=== PATIENT | male | born 1990 | race African-American/Black ===

== ENCOUNTER → 2017-02-26 | Outpatient (CLI) | payer OTHER ==
[~2017-02-26] MED LIST: ARIP5TA PO; ATIV1TAB10 PO; HYDRO50TAB PO; METHACHOLINE KIT (J7674) INH ONE; PROAAER10 INH; QUET5TAB PO; SERT50TA PO
--- NOTE | 2017-02-26 09:12 | PFTRPT ---
Tech: Chris DICKENS RRT Age: 26 Sex: Male Race: Black Height: 71.00 Inches Weight: 180.00 Lbs BSA: 2.02 Diagnosis: R06.02 METHACHOLINE CHALLENGE REPORT: ORDERING PROVIDER: DENNIS Paige DATE OF SERVICE: 02/26/17 INTERPRETATION: The study was of excellent technical quality. Under protocol, methacholine was administered. At a dose of 2.5 mg (13.875 CDUs), a 43% decline in the FEV1 was noted. The PC20 of 0.28 is significant. Flow rates returned to baseline post bronchodilator administration. IMPRESSION: Positive methacholine challenge study. MTDD
== END ==
LOC: M CARPUL 07:52
PROVIDERS: ATTEND Nurse Practitioner Adult Health
DX: R06.02 Shortness of breath (principal)

== ENCOUNTER 2017-03-11 08:42 | Inpatient (IN) | payer OTHER ==
[~2017-03-11] VITALS: Ht 180.3 cm; Wt 82.8 kg
[2017-03-11 09:25] LABS: MEAN CORPUSCULAR HEMOGLOBIN 30.9 pg (27.0-33.0); MEAN CORPUSCULAR HGB CONC 33.7 g/dl (32.0-36.5); MEAN CORPUSCULAR VOLUME 91.7 fl (80.0-96.0); WHITE BLOOD COUNT 3.3 K/mm3 (4.0-10.0)
[2017-03-11 09:51] LABS: ALBUMIN 3.9 GM/DL (3.2-5.2); ALBUMIN/GLOBULIN RATIO 1.26 (1.00-1.93); ALKALINE PHOSPHATASE 56 U/L (45-117); ALT/SGPT 37 U/L (12-78); ANION GAP 6 MEQ/L (8-16); AST/SGOT 26 U/L (15-37); BILIRUBIN,DIRECT 0.2 MG/DL (0.0-0.2); BILIRUBIN,TOTAL 0.9 MG/DL (0.2-1.0); BLOOD UREA NITROGEN 8 MG/DL (7-18); CALCIUM LEVEL 8.8 MG/DL (8.5-10.1); CARBON DIOXIDE LEVEL 30 MEQ/L (21-32); CHLORIDE LEVEL 102 MEQ/L (98-107); CREATININE FOR GFR 1.03 MG/DL (0.70-1.30); GLOMERULAR FILTRATION RATE > 60.0 (>60); GLUCOSE, FASTING 80 MG/DL (70-105); POTASSIUM SERUM 3.8 MEQ/L (3.5-5.1); SODIUM LEVEL 138 MEQ/L (136-145)
[2017-03-11 10:06] LABS: METHADONE URINE NEGATIVE (NEGATIVE)
[2017-03-11] MEDS ORDERED: MOM 30ML SUSPENSION UDC PO PRN (14:45)
[2017-03-11] MEDS ORDERED: MAALOX 30 ML SUSP *UDC PO PRN (14:45)
[2017-03-11] MEDS ORDERED: traZODone 50 MG TAB PO PRN (14:45)
[2017-03-11] MEDS ORDERED: ACETAMINOPHEN TAB 650MG DOSE (2X325MG) PO PRN (14:45)
[2017-03-11] MEDS ORDERED: PROAAER10 INH (16:02)
[2017-03-12 06:22] VITALS: BP 121/59
--- NOTE | 2017-03-12 09:22 | HPEPDOC ---
Medical History and Physical Date of Admission Mar 11, 2017 at 14:38 History and Physical PCP: [facility] ATTENDING: Dr. Andre Choi HPI: 26[facility]M [facility], being medically examined today. Patient states he has had a headache for the past 1 week. He states the pain has been continual. He rates the pain as 2/10. He states the pain is bitemporal, achy. He reports no associated photophobia, phonophobia, nausea, vomiting, dizziness or visual disturbances. He denies diplopia, vertigo, dysarthria or dysphagia. He denies neck or back pain. No weakness, numbness, or tingling in arms or legs. Denies any fevers, chills, weakness, fatigue, CP, SOB, cough, palpitations, abdominal pain, N/V/D or changes in bowel or bladder habits. PMHx: Asthma Depression Anxiety History of SI PSHX: Denies SOCHX: Resides in: [facility], from [place]. 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 ROS: As noted in HPI, otherwise 11pt ROS of systems reviewed and unremarkable. PE: GEN: 26 yo M, appears stated age. Well-nourished, well developed. No acute distress. Alert and oriented x 3. Pleasant, interactive. HEENT: Normocephalic, atraumatic. Pupils are equal, round, and reactive to light. Extraocular movements are intact. No nystagmus appreciated. Sclera are nonicteric. Conjunctiva without injection. Nose midline. Nasal turbinates without bogginess. EACs both patent BL. TMs both visualized and villarreal with good cone of light, no bulging or erythema. No facial asymmetry. Moist mucous membranes. Dentition fair. Pharynx pink and moist, no cobblestoning. Neck supple , trachea midline. No lymphadenopathy or thyromegaly appreciated. CHEST: Regular rate and rhythm, +S1, +S2 LUNGS: Clear to auscultation bilaterally. No wheezes, rales, or rhonchi. Breathing appears symmetric and easy. Patient is speaking in full sentences. No accessory muscle use. ABD: Round, soft, non-tender, non-distended. +Bowel sounds throughout. No rebound or guarding. No costovertebral angle tenderness. EXT: Pulses 2+ bilaterally dorsalis pedis and radial. No lower extremity edema appreciated. SKIN: Danielson, dry, warm. Capillary refill <2sec. No rashes. NEURO: Alert and oriented x 3. Cranial nerves III-XII are intact. No focal deficits appreciated. EKG: Pending. A&P: 26yoM [facility] 1. Psych. Plan per Psychiatry. Obtain baseline EKG to assure the safety of psychiatric medications as they can prolong the QT interval. 2. Asthma. Albuterol 2 puffs every 4 hours as needed. 3. Headache. Request CT Brain. Tylenol 650 mg every 6 hours as needed. 4. Follow up with PCP on discharge. 5. Staff member Perfecto present throughout exam. Vital Signs Vital Signs Date Time Temp Pulse Resp B/P (MAP) Pulse Ox O2 Delivery O2 Flow Rate FiO2 03/12/17 06:22 98.1 51 16 121/59 (79) 03/11/17 14:42 100 Laboratory Data Labs 24H Item Value Date Time White Blood Count 3.3 K/mm3 L 03/11/17 0910 Red Blood Count 5.19 M/mm3 03/11/17 0910 Hemoglobin 16.1 g/dl 03/11/17 0910 Hematocrit 47.6 % 03/11/17 0910 Mean Corpuscular Volume 91.7 fl 03/11/17 0910 Mean Corpuscular Hemoglobin 30.9 pg 03/11/17 0910 Mean Corpuscular Hemoglobin Concent 33.7 g/dl 03/11/17 0910 Red Cell Distribution Width 12.0 % 03/11/17 0910 Platelet Count 288 k/mm3 03/11/17 0910 Sodium Level 138 MEQ/L 03/11/17 0910 Potassium Level 3.8 MEQ/L 03/11/17 0910 Chloride Level 102 MEQ/L 03/11/17 0910 Carbon Dioxide Level 30 MEQ/L 03/11/17 0910 Anion Gap 6 MEQ/L L 03/11/17 0910 Blood Urea Nitrogen 8 MG/DL 03/11/17 0910 Creatinine 1.03 MG/DL 03/11/17 09 Glomerular Filtration Rate > 60.0 03/11/17 0910 Fasting Glucose 80 MG/DL 03/11/17 0910 Calcium Level 8.8 MG/DL 03/11/17 0910 Total Bilirubin 0.9 MG/DL 03/11/17 0910 Direct Bilirubin 0.2 MG/DL 03/11/17 0910 Aspartate Amino Transf (AST/SGOT) 26 U/L 03/11/17 0910 Alanine Aminotransferase (ALT/SGPT) 37 U/L 03/11/17 0910 Alkaline Phosphatase 56 U/L 03/11/17 0910 Total Protein 7.0 GM/DL 03/11/17 0910 Albumin 3.9 GM/DL 03/11/17 0910 Albumin/Globulin Ratio 1.26 03/11/17 09 Thyroid Stimulating Hormone (TSH) 2.330 uIU/ML 03/11/17 0910 Salicylates Level < 1.7 MG/DL L 03/11/17909 Urine Opiates Screen NEGATIVE 03/11/17 0907 Urine Methadone Screen NEGATIVE 03/11/17 0907 Acetaminophen Level < 2.0 UG/ML L 03/11/17909 Urine Barbiturates Screen NEGATIVE 03/11/17 0907 Urine Phencyclidine Screen NEGATIVE 03/11/1707 Urine Amphetamines Screen NEGATIVE 03/11/1707 Urine Benzodiazepines Screen NEGATIVE 03/11/1707 Urine Cocaine Metabolite Screen NEGATIVE 03/11/1707 Urine Cannabinoids Screen NEGATIVE 03/11/17 0907 Ethyl Alcohol Level < 0.003 % 03/11/17 09 Home Medications Scheduled PRN Albuterol Sulfate (Proair Hfa) 108 Mcg/Act Aer, 2 PUFF INH Q8HP PRN for SHORTNESS OF BREATH Allergies Coded Allergies: Penicillins (Verified Allergy, Severe, anyphylaxis, 03/11/17) Chayo Porter Mar 12, 2017 09:22
--- NOTE | 2017-03-12 11:02 | REP ---
REASON: Headache. PRIORS: None. TECHNIQUE: 4.5 mm contiguous transaxial sections were obtained from the skull base to the cerebral convexities with thin cuts through the posterior fossa without the administration of intravenous contrast. FINDINGS: The ventricles and sulci are consistent with the patient's age. There are no extra-axial fluid collections. There is no mass effect. The deep cerebral white matter is consistent with the patient's age. The orbital and petrous structures , cerebellopontine angles, and posterior fossa are unremarkable. The sella turcica, cavernous, and paracavernous structures are essentially unremarkable. The visualized portions of the paranasal sinuses and mastoid air cells are clear. Images of the skull base show no gross abnormality. IMPRESSION: Essentially unremarkable CT examination of the brain. Signed by Richard Castillo DO 03/12/2017 11:10 A
[2017-03-12] MEDS: SERTRALINE HCL 50 MG TAB PO SCH (11:41)
[2017-03-12] MEDS: LORazepam 0.5 MG TAB PO SCH ×2 (11:41→21:28)
[2017-03-12 18:10] VITALS: BP 136/74
[2017-03-12] MEDS: QUEtiapine FUMARATE 50 MG TAB PO SCH (21:28)
--- NOTE | 2017-03-12 21:36 | ECGEPIP ---
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
--- NOTE | 2017-03-12 22:10 | MHHPEPDOC ---
[facility] History & Physical History and Physical DATE OF ADMISSION: Mar 11, 2017 at 14:38 LEGAL STATUS AT ADMISSION: 9.39 CHIEF COMPLAINT: Patient was bbrought in to the ED for suicidal ideation . HISTORY OF THE PRESENT ILLNESS: Patient is a 26-year-old male, who was admitted for increasing anxiety, depression and suicidal ideation. Patient reports that he "is a perfectionist", is a hard worker, can't disconnect from work but hasn' t been able to perform as well as he would like to, his thoughts get "locked in ", starts having suicidal ideation. He started having suicidal thoughts since last Saturday, when he started to spiral down. 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 PSYCHIATRIC REVIEW OF SYSTEMS: Affective: Feels very angry, has felt angry since he was 9/10 years old but has been able to hold it. He feels helpless at this time, has guilty feelings and SI Anxiety: Very high Trauma: Denies Psychosis: Denies Personally: Needs further assessment PAST PSYCHIATRIC HISTORY: Prior Psychiatric Disorder: Has receives therapy but never medications. Never received a diagnosis Outpatient Treatment: Outpatient therapy Suicidal/Self injurious: Denies. Psychotropic Medication History: None. ALLERGIES: Please see below. FAMILY PSYCHIATRIC HISTORY: Denies. SOCIAL HISTORY: Early Relations/development: Nikko a good relationship with his family. Parents got when he was approximately 11 years old.Both parents continue to be supportive. He has a younger brother with whom he is very close. Sibling order: He is the oldest of two brothers. Paternal relationships: Good. Education: High school graduate. 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 Legal: Denies. Martial: since two years ago, has no children. Economic: Denies financial strains. Supports: Mother and . Abuse/trauma: Denies. SUBSTANCE ABUSE HISTORY: Reports that about three years ago he has drinking too much. He doesn't drink, smoke or do any drugs at this time.. PAST MEDICAL/SURGICAL HISTORY: UNREMARKABLE VITAL SIGNS: Stable MENTAL STATUS EXAMINATION: General appearance: Patient is a 26-year old male, who is alert,cooperative, pleasant, with goo eye contact, good eye hygiene, dressed in hospital clothes. Speech: Normal Thought processes: Intact. Thought content: Coherent. Abstract reasoning and computation: Fair. Description of associations: Good. Description of abnormal or psychotic thoughts: Not present. Judgment: Fair. Insight: Fair. Orientation: Oriented x 3. Recent and remote memory: Intact. Attention span and concentration: Good. Fund of knowledge: Fair. Mood: Anxious/sad Affect: Anxious. DIAGNOSES: 1. Major Depressive Disorder, with suicidal ideation 2. Generalized anxiety disorder. ASSESSMENT: Patient is very depressed but he is able to control his emotions, has repressed feelings of frustration through the years. He is very anxious, can 't relax, can't stop working, is a perfectionist and is very demanding of himself. PROBLEM LIST: 1. Risk for suicide. 2. Anxiety. 3. Depression. INITIAL TREATMENT PLAN: 1. Patient was admitted on a 9 2. Complete history was obtained. 3. With patients permission, family will be contacted and database will be expanded. 4. Patients medication regimen will be reviewed and changed accordingly. 5. Patient will be provided with protected environment. 6. Patient will be treated with individual, group, and milieu therapies. 7. Patient will receive supportive psych-education. 8. Discharge planning will commence immediately. 9. Outpatient follow-up treatment will be strongly recommended. 10. The initial treatment plan will focus initially on: * Depression. * Risk for suicide. * Substance abuse. ESTIMATED LENGTH OF STAY: 5-10DAYS. TIME SPENT COUNSELING AND COORDINATING INITIAL CARE: 60 minutes. Medications Scheduled PRN Albuterol Sulfate (Proair Hfa) 108 Mcg/Act Aer, 2 PUFF INH Q8HP PRN for SHORTNESS OF BREATH, (Reported) Allergies Coded Allergies: Penicillins (Verified Allergy, Severe, anyphylaxis, 03/11/17) AMY PATTON MD Mar 12, 2017 22:10
[2017-03-13 06:45] VITALS: BP 124/59
[2017-03-13] MEDS: SERTRALINE HCL 50 MG TAB PO SCH (09:05)
[2017-03-13] MEDS: LORazepam 0.5 MG TAB PO SCH ×2 (09:05→21:00)
[2017-03-13 18:25] VITALS: BP 137/65
[2017-03-13] MEDS: QUEtiapine FUMARATE 50 MG TAB PO SCH (21:00)
[2017-03-14 07:17] VITALS: BP 124/69
[2017-03-14] MEDS: SERTRALINE HCL 50 MG TAB PO SCH (09:16)
[2017-03-14] MEDS: LORazepam 0.5 MG TAB PO SCH ×2 (09:16→21:51)
[2017-03-14] MEDS: hydrOXYzine 50 MG TAB PO PRN (17:24)
--- NOTE | 2017-03-14 17:24 | MHIPNPDOC ---
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 Patient reports being stressed out for the amount of work he does, he reports to be very demanding on himself, not being able to relax, not able to think about other things other than work. He dislikes his job, feels unfulfilled with his current job situation. Subjective: Patient reports sleeping better, recovering his appetite slowly, anxiety, inability to relax. Patient denies suicidal and homicidal ideation at this time. Denies auditory and visual hallucinations, denies thought delusions. Admits to having obsessive thoughts that are work related. Reports he doesn't want to continue working at [employer], mostly because he feels that he is done with the [employer]. He wants to do something else, be a teacher, do research. He reports his marriage is okay, his is supportive. Objective: Patient is alert and oriented 3,, clean, well-groomed, pleasant, cooperative, with good eye contact. His speech is coherent, fluent and spontaneous. His thought process is intact and his thought content is full of anxious thoughts and worries. He denies active suicidal ideation, homicidal ideation, thought delusions and denies auditory or visual hallucinations. Attention and concentration are good, memory is intact, his oriented 3, fund of knowledge is adequate, insight is fair, judgment is fair, impulse control has been good until now. Patient's mood and affect are anxious and depressed. He tries to conceal his depression and anxiety, tries to minimize his symptoms but are not certain points he can't do it anymore and it becomes obvious in his facial expression. Assessment: Patient still very depressed, extremely anxious, has obsessive thoughts about his work in his life situation. Unable to relax, wants to have control of everything in his life, because he wants things to be perfect. Patient still very vulnerable and at risk for suicide. Diagnosis: 1. Generalized anxiety disorder, severe. 2. Obsessive-compulsive traits 3. Major depressive disorder, moderate to severe Management plan: Patient's medications will be adjusted, Zoloft will be increased and he will be started on a mood stabilizer to help him with his depression and anxiety. In this case a mood stabilizer would help him with his obsessions and will boost the antidepressant effect of the SSRI. Will monitor closely and will follow-up. TIME SPENT: 30 minutes. Vital Signs Vital Signs Date Time Temp Pulse Resp B/P (MAP) Pulse Ox O2 Delivery O2 Flow Rate FiO2 03/14/17 07:17 97.8 60 16 124/69 (87) Room Air 03/11/17 14:42 100 Current Medications Current Medications Acetaminophen (Tylenol Tab) 650 mg Q6HP PRN PO HEADACHE or DISCOMFORT; Start at 14:45; Stop 04/10/17 at 14:44 Al Hydrox/Mg Hydrox/Simethicone (Mylanta) 30 ml Q4HP PRN PO HEARTBURN/ INDIGESTION; Start 03/11/17 at 14:45; Stop 04/10/17 at 14:44 Home Med (Med Rec Complete!) ASDIRECTED XX ; Start 03/11/17 at 12:15; Stop at 12:15; Status DC Hydroxyzine HCl (Atarax) 50 mg Q4HP PRN PO ANXIETY; Start 03/12/17 at 11:00; Stop 04/11/17 at 10:59 Lorazepam (Ativan) 0.5 mg BID PO Last administered on 03/14/17 09:16; Start at 09:00; Stop 03/19/17 at 08:59 Magnesium Hydroxide (Milk Of Magnesia) 30 ml DAILYPRN PRN PO CONSTIPATION; Start 03/11/17 at 14:45; Stop 04/10/17 at 14:44 Quetiapine Fumarate (SEROquel) 50 mg QHS PO Last administered on 03/13/17 21: 00; Start 03/12/17 at 21:00; Stop 04/11/17 at 20:59 Sertraline HCl (Zoloft) 50 mg DAILY PO Last administered on 03/14/17 09:16; Start 03/12/17 at 09:00; Stop 04/11/17 at 08:59 Trazodone HCl (Desyrel) 50 mg QHSP PRN PO INSOMNIA; Start 03/11/17 at 14:45; Stop 04/10/17 at 14:44; Status Cancel Allergies Coded Allergies: Penicillins (Verified Allergy, Severe, anyphylaxis, 03/11/17) AMY PATTON MD Mar 14, 2017 17:24
--- NOTE | 2017-03-14 17:41 | MHIPN ---
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 The patient has reported that he has been feeling very depressed for about 8 years already and 3 years ago he said he was coping by not coping with alcohol and he says that when he got to his he stopped drinking. He denies alcohol, nicotine or any other drug use or abuse. He denies previous suicide attempts, but reports that since last week he has been having intrusive suicidal thoughts, without a specific plan, although the thoughts have come up with command with the form of either crashing in his car or shooting himself, but he has been able to block the thoughts. He says he feels stressed out by work. He describes himself as a hard worker, but says that he cannot disconnect from his job related issues. 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 He denies having marital problems with his significant other, his , says he has support from her, from his mother and his brother. VITAL SIGNS: Stable. There are no new test results. MENTAL STATUS EXAM: The patient is alert, oriented times three, pleasant, cooperative, more calm than yesterday. His speech is spontaneous, fluid, very articulate and coherent. Thought process is intact. Thought content is goal-directed, coherent. Description of normal or psychotic thoughts: He denies auditory or visual hallucinations. Denies thought delusions and denies suicidal or homicidal ideation at this time. His judgment is fair. His insight is fair. He is oriented times three. His recent and remote memory is good. Attention span and concentration and is good. Language: He has good language skills. Fund of knowledge is good. Mood: "I have been able to use my coping skills to block the suicidal thoughts". Affect less depressed and anxious. DIAGNOSES: 1. Unspecified depressive disorder. 2. Anxiety disorder. 3. Obsessive compulsive traits. ASSESSMENT: The patient has had a slight improvement from yesterday. Apparently he is not as depressed as he was but at times he becomes a little bit tearful, he is able to control it, but he is sad. The patient's rationalizes and uses his mind to cope with everything. Takes notes. He is very organized, but continues to have very high expectations from him and the rest of the world and this is a constant source of frustration for him. The patient needs to learn to relax and be more tolerant to others, less demanding to himself. MANAGEMENT PLAN: He will continue the same medications that he has been, Zoloft 50 mg by mouth four times a day, Ativan and Atarax. He will be monitored closely and will followup.
[2017-03-14 18:00] VITALS: BP 134/73
[2017-03-14] MEDS: QUEtiapine FUMARATE 50 MG TAB PO SCH (21:51)
[2017-03-15 06:29] VITALS: BP 117/64
[2017-03-15] MEDS: LORazepam 0.5 MG TAB PO SCH ×2 (08:13→22:33)
[2017-03-15] MEDS: SERTRALINE HCL 50 MG TAB PO SCH (08:13)
[2017-03-15 18:00] VITALS: BP 121/56
[2017-03-15] MEDS: QUEtiapine FUMARATE 50 MG TAB PO SCH (22:33)
[2017-03-16 06:31] VITALS: BP 131/60
[2017-03-16] MEDS: SERTRALINE HCL 50 MG TAB PO SCH (09:28)
[2017-03-16] MEDS: hydrOXYzine 50 MG TAB PO PRN (15:05)
[2017-03-16 18:17] VITALS: BP 130/63
[2017-03-16] MEDS: LORazepam 0.5 MG TAB PO SCH (21:16)
[2017-03-16] MEDS: QUEtiapine FUMARATE 50 MG TAB PO SCH (21:16)
[2017-03-17 06:09] VITALS: BP 125/59
[2017-03-17] MEDS: SERTRALINE HCL 50 MG TAB PO SCH (09:13)
--- NOTE | 2017-03-17 17:06 | MHIPN ---
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 The patient reports being stressed out for the amount of work that he has to do at [employer], he reports being extremely demanding on himself and not being able to relax, not being able to think about other things other than work. 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 SUBJECTIVE: The patient reports feeling a little bit tired, feeling unmotivated. When this credit underwriter discussed with the patient if he really felt lack of motivation or if it was that he was feeling relaxed probably for the first time, he gave it a thought. He says that he never has felt relaxed before, he is always doing something. Discussed with the patient several relaxation techniques. The patient reported that even though he felt tired and he was a little bit more relaxed, he was still not able to think about other things other than work. He says that once he is able to go back home he will go to his computer and check his [place] reports that he has and he will make numbers to see if he has had enough saved for him and his to have a good life in the future. He expressed concerns about financial situation in case he will step out of the . OBJECTIVE: The patient is alert and oriented times three. Well groomed. Clean with good eye contact. Very pleasant and cooperative. The patient comes to the interview with a book in his hand, looks less uptight and less stressed than yesterday, looks more relaxed. His speech is fluent and spontaneous. His thought process is intact. His thought content is coherent. He denies suicidal or homicidal ideation. Reports extreme anxiety. Says that he has feared all of his life anything and everything and that is why he is not able to relax because he is always afraid of doing things wrong. The patient denies thought delusions. Denies auditory and visual hallucinations. Attention and concentration are fair. Memory is intact. He is oriented times three. His fund of knowledge is very good. His insight and judgment are fair. His impulse control is good. The patient's mood and affect are anxious/depressed. The patient did not try to conceal today his sadness that he has tried to do it previously. ASSESSMENT: The patient continues to be depressed and anxious, although he is getting a little bit more relaxed due to the medication response. DIAGNOSES: 1. Generalized anxiety disorder, severe. 2. Major depressive disorder, moderate to severe. 3. Obsessive compulsive traits. MANAGEMENT PLAN: The patient's medications were modified today because he reported feeling a little bit drowsy. Lorazepam was decreased from 0.5 mg by mouth twice a day to 0.5 mg by mouth at night. The patient will be reassessed tomorrow and medication adjustments will be made. It will be done if necessary. We will followup.
[2017-03-17 18:25] VITALS: BP 120/59
[2017-03-17] MEDS: QUEtiapine FUMARATE 50 MG TAB PO SCH (22:29)
[2017-03-17] MEDS: LORazepam 0.5 MG TAB PO SCH (22:29)
[2017-03-18 06:46] VITALS: BP 119/56
[2017-03-18] MEDS: SERTRALINE HCL 50 MG TAB PO SCH (08:09)
[2017-03-18] MEDS: hydrOXYzine 50 MG TAB PO PRN (11:02)
[2017-03-18 18:00] VITALS: BP 124/76
[2017-03-18] MEDS: LORazepam 0.5 MG TAB PO SCH (21:52)
[2017-03-18] MEDS: QUEtiapine FUMARATE 50 MG TAB PO SCH (21:52)
[2017-03-19 06:00] VITALS: BP 96/55
[2017-03-19] MEDS: SERTRALINE HCL 50 MG TAB PO SCH (08:23)
--- NOTE | 2017-03-19 08:30 | MHIPN ---
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 2. Generalized anxiety disorder. 3. Obsessive compulsive traits. SUBJECTIVE: The patient reports feeling very upset today, says that he does not trust anyone because due to past events that have to do with his father's arrest when he was a child, he learned not to trust and his mother and his grandmother have done to him this message, do not trust anyone. He narrated the way that he has thought about shooting himself, at what angle he would put the pistol at his head, while he did this he was devoid of emotions. He said that is what worries me, that I think about everything, but when I think about that, I feel no emotion. OBJECTIVE: The patient is alert, oriented times three and cooperative. He is angry, he is anxious and he is depressed. He is not delusional, he is not responding to internal stimuli, he denies homicidal ideation but he has thoughts about dying and about killing himself. His judgment and insight are limited, his impulse control is fair. ASSESSMENT: The patient is still a danger to himself, he is not an impulsive person, in fact he has never allowed himself to be impulsive; however, he is a danger to self, he has planned how to commit suicide, and he never told this rewriter before as of how he has thought of killing himself. He expressed those thoughts today because he says his told him over the weekend that he should let me know. 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 The patient is at high risk for suicide. Will followup.
[2017-03-19] MEDS: LORazepam 0.5 MG TAB PO SCH ×2 (11:48→21:36)
[2017-03-19 18:00] VITALS: BP 137/66
[2017-03-19] MEDS: QUEtiapine FUMARATE 50 MG TAB PO SCH (21:36)
[2017-03-20 07:09] VITALS: BP 111/66
[2017-03-20] MEDS: SERTRALINE HCL 50 MG TAB PO SCH (09:32)
[2017-03-20] MEDS: LORazepam 0.5 MG TAB PO SCH ×2 (09:32→21:21)
--- NOTE | 2017-03-20 11:57 | MHIPN ---
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 2. Generalized anxiety disorder. 3. Obsessive compulsive traits. SUBJECTIVE: The patient reports feeling happy today, not upset as he was yesterday. He says he has been thinking a lot about what we have spoken and he has decided that he is going to try live every day at a time. He is not trying to worry much about the future holds for him. He knows for sure that he wants to get out of the [employer] and he wants to become a teacher. He contradicts himself about his thoughts because when he was asked if he was suicidal, he said "No, I have not thought about suicide for a couple of days now, I want to live," but later on he says that his mind always gives him two choices, if he should get out of the [employer] or if he should kill himself. OBJECTIVE: The patient is alert and oriented times three. Cooperative with interview. Intact thought process and coherent thought content. His speech is coherent. His affect is constricted. His mood is anxious/depressed. He is not homicidal at this time. He denies suicidal thoughts, but it is not clear if he is minimizing them. He denies auditory and visual hallucinations. He denies thought delusions. His judgment and insight are poor. His impulse control is fair. ASSESSMENT: The patient described yesterday how he has planned on killing himself. He is at high risk for suicide. He will continue treatment at [facility] and possibly he will be transferred on . The patient needs long-term treatment in psychotherapy and medications. We will followup.
[2017-03-20 18:00] VITALS: BP 149/76
[2017-03-20] MEDS: QUEtiapine FUMARATE 50 MG TAB PO SCH (21:21)
[2017-03-21 06:27] VITALS: BP 133/77
[2017-03-21] MEDS ORDERED: SERT50TA PO (09:07)
[2017-03-21] MEDS ORDERED: QUET5TAB PO (09:07)
[2017-03-21] MEDS ORDERED: HYDRO50TAB PO (09:07)
[2017-03-21] MEDS ORDERED: ATIV1TAB10 PO (09:07)
[2017-03-21] MEDS ORDERED: ARIP5TA PO (09:07)
[2017-03-21] MEDS: LORazepam 0.5 MG TAB PO SCH (09:44)
[2017-03-21] MEDS: SERTRALINE HCL 50 MG TAB PO SCH (09:45)
--- NOTE | 2017-03-21 11:24 | MHIPN ---
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 2. Generalized anxiety disorder. 3. Obsessive compulsive traits. SUBJECTIVE: The patient reports he feels ready for tomorrow when he will be transferred to [facility]. He says that he has learned by being in the inpatient mental health unit, that yoga and meditation should be part of every person's life, like taking a shower or brushing your teeth. He says he feels so much better after meditating, he does not want to lose his class. He says that he dreamed with his father, and his father was pleasant at him, because he was at the inpatient mental health unit. The patient says after his father laughed and made fun of him, he starting telling him a lot of things that he had on his chest because the patient blames his father and a situation related to his father for certain troubles that he had to face when he was a child. So did his mother and his brother. OBJECTIVE: The patient is alert, oriented times three, cooperative. His speech is fluid and spontaneous, he looks less tormented today. His thought process is intact and his thought content is coherent. He is a little bit anxious. He is not homicidal. No suicidal at this time, he denies auditory and visual hallucinations and denies thought delusions. He is not responding to internal stimuli. Judgment and insight are fair. His impulse control is fair. ASSESSMENT: The patient seems to be calmer today, is coming to terms with a situation that affected his life and his brother's life as well as his mother when his father went to [facility]. He has held resentment against his father and against the people who he believes contributed to his father going to [facility]. By dreaming about this incident and letting these things off his chest, he probably is processing all of this information and all these feelings and this is contributing to his healing. The patient will continue on the same medications and will be discharged from the inpatient mental health unit tomorrow, , March 21, 2017 and he will be transferred to [facility].
--- NOTE | 2017-03-21 14:24 | MHDSPDOC ---
[facility] Discharge Summary Discharge Summary DATE OF ADMISSION: Mar 11, 2017 at 14:38 DATE OF DISCHARGE: Mar 21, 2017 at 10:02 DISCHARGE DIAGNOSES: 1. Major depressive disorder, recurrent, moderate in severity 2. Generalized anxiety disorder 3. Obsessive-compulsive traits REASON FOR ADMISSION: Patient was bbrought in to the ED for suicidal ideation . HISTORY OF THE PRESENT ILLNESS: Patient is a 26-year-old male, who was admitted for increasing anxiety, depression and suicidal ideation. Patient reports that he "is a perfectionist", is a hard worker, can't disconnect from work but hasn' t been able to perform as well as he would like to, his thoughts get "locked in ", starts having suicidal ideation. He started having suicidal thoughts since last Saturday, when he started to spiral down. 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 CONSULTANTS INVOLVED: None TREATMENT AND PROGRESS ON THE UNIT : Patient was started on Zoloft 50 mg by mouth daily but he continued reporting anxiety and depression and for that reason this medication was increased to 100 mg by mouth daily and was started on Abilify 2.5 mg by mouth daily at bedtime, because this medication and affect as a booster for antidepressants and because he is very obsessive .Patient reports he is not happy being in the [employer], does not agree on killing, invading other territories. He admits he is obsessive about his work performance, about order and is not able to disconnect his thoughts from work related issues. 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 However, he blames his garage supervisor because he says this one dumps all his work on him. He has reported not trusting other people since his father was taken to senior living when he was 8 years old. He says things that event his and his family life changed. His mother had to work for jobs to make ends meet, he felt as if his brother and him were being targeted in school, they live in the same neighborhood where his father's coworkers lived, people that he thinks he traits his father and contributed to him going to senior living. Even though he says he and his family were always on his father's side and loyal to him, he is resentful against his father not being careful enough about the people he related to an ending up in senior living, living with family vulnerable. The patient has told his to put away a mat at the front door that says "wellcome". He says no one is welcome there, because he is not able to trust and his mother used to tell him do not trust anyone. Patient reports overthinking everything he does, he doesn't want to look bad, make errors. He reported stopping and calculating the way that he will kill himself, the angle that he will hold his pistol, the caliber of the ammunition. When he spoke about this, he didn't show any emotions. Patient had a good response to medications, attended groups daily and he particularly liked yoga and meditation because they helped him feel relaxed. He had problems with sleeping but he had poor response to Seroquel 50 mg by mouth daily at bedtime. Due to his high anxiety levels, he was started on Ativan 0.5 mg by mouth twice a day on a fixed schedule and he had Atarax 50 mg by mouth every 4 hours when necessary for anxiety or agitation. HOSPITAL COURSE: As above DISCHARGE ASSESSMENT: Patient was stable to be discharged, his insight and judgment have improved, he was not dangerous to self or others, was not suicidal or homicidal, was not responding to internal stimuli, was not psychotic. MENTAL STATUS EXAMINATION ON DISCHARGE: Patient is a 26-year old male, who is alert, cooperative, with good eye contact. Speech is spontaneous and fluid. Language skills are normal. Thought processes including: Intact. Thought content: Coherent. Abstract reasoning, and computation: Good. Description of associations: Good. Description of abnormal or psychotic thoughts: Denies auditory or visual hallucinations, denies thought delusions, denies suicidal and homicidal ideation. He is not responding to internal stimuli. Judgment: Improving. Insight: Improving. Orientation to oriented 3. Recent and remote memory: Intact. Attention span and concentration: Fair. Language: Good. Fund of knowledge: Adequate. Mood: "I'm fine, I want to live". Affect: Euthymic. MEDICATIONS ON DISCHARGE: -Zoloft 100 mg by mouth daily for depression. -Abilify 2.5 mg by mouth daily at bedtime for depression/obsessiveness/impulse control. -Ativan 0.5 mg by mouth twice a day for anxiety -Atarax 50 mg by mouth every 4 hours when necessary for anxiety or agitation -Seroquel 50 mg by mouth daily at bedtime for sleep. 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 The amount of time spent in the coordination of care for this patient was approximately 45 minutes. Vital Signs/I&Os Vital Signs Date Time Temp Pulse Resp B/P (MAP) Pulse Ox O2 Delivery O2 Flow Rate FiO2 03/21/17 06:27 98.4 65 16 133/77 (95) Room Air 03/19/17 06:00 100 Medications Scheduled Aripiprazole (Aripiprazole) 5 Mg Tab, 2.5 MG PO QHS for MOOD, #7 Lorazepam (Ativan) 0.5 Mg Tab, 0.5 MG PO BID for ANXIETY, #14 Quetiapine Fumerate (Quetiapine Fumarate) 50 Mg Tab, 50 MG PO QHS for INSOMNIA, #7 Sertraline Hcl (Sertraline HCl) 50 Mg Tab, 100 MG PO DAILY for DEPRESSION, #14 Scheduled PRN Albuterol Sulfate (Proair Hfa) 108 Mcg/Act Aer, 2 PUFF INH Q8HP PRN for SHORTNESS OF BREATH, (Reported) Hydroxyzine HCl (Hydroxyzine HCl) 50 Mg Tab, 50 MG PO Q4HP PRN for ANXIETY, #21 Allergies Coded Allergies: Penicillins (Verified Allergy, Severe, anyphylaxis, 03/11/17) AMY PATTON MD Mar 21, 2017 14:24
== END 2017-03-21 10:02 | disposition home or self-care (01) | DRG 885 ==
LOC: M ED 08:42 → M ED INP 14:38 → M PSY 15:20
PROVIDERS: ADMIT Psychiatry & Neurology Psychiatry; ATTEND Psychiatry & Neurology Psychiatry
DX: F33.1 Major depressive disorder, recurrent, moderate (principal); F41.1 Generalized anxiety disorder; Z88.0 Allergy status to penicillin; J45.909 Unspecified asthma, uncomplicated; R51 Headache; F42.9 Obsessive-compulsive disorder, unspecified

== ENCOUNTER → 2018-02-27 | Outpatient (CLI) | payer OTHER ==
[2018-02-27 22:18] LABS: ALBUMIN/GLOBULIN RATIO 1.38 (1.00-1.93); ALKALINE PHOSPHATASE 66 U/L (45-117); ALT/SGPT 36 U/L (12-78); AST/SGOT 37 U/L (7-37); BILIRUBIN,DIRECT 0.1 MG/DL (0.0-0.2); BILIRUBIN,TOTAL 0.4 MG/DL (0.2-1.0); TOTAL PROTEIN 6.9 GM/DL (6.4-8.2)
[2018-02-28 09:35] LABS: CONTROL LINE HPYORI INT CTR LINE PRESENT; H PYLORI QUALITATIVE IgG NEGATIVE (NEGATIVE)
== END ==
LOC: M LAB 16:24
DX: K62.5 Hemorrhage of anus and rectum (principal)
CPT/HCPCS: 80076